=== PATIENT | female | born 1995 | race Caucasian/White ===

== ENCOUNTER 2019-07-04 07:51 | Emergency (ER) | payer MEDICAID ==
[~2019-07-04] VITALS: Ht 170.2 cm; Wt 119.0 kg
[2019-07-04 09:48] LABS: BASOPHILS % 0.3 % (0.0-2.0); HEMATOCRIT. 35.4 % (36.0-48.0); LYMPHOCYTES % 26.6 % (20.0-50.0); MEAN CORPUSCULAR HEMOGLOBIN 29.4 pg (28.0-32.0); MEAN CORPUSCULAR VOLUME 86.9 fL (81.0-99.0); MEAN PLATELET VOLUME 8.6 fl (7.4-10.4); MONOCYTES % 7.1 % (2.0-8.0); PLATELET 289 x1000/uL (130-400); RED BLOOD CELL COUNT 4.08 mill/uL (4.2-5.4)
[2019-07-04 09:56] LABS: CHLORIDE 108 mEq/L (98-107)
[2019-07-04 09:58] LABS: CLARITY URINE CLEAR (CLEAR); COLOR URINE YELLOW (YELLOW); KETONES URINE NEGATIVE (NEGATIVE); LEUKOCYTE ESTERASE URINE 1+ (NEGATIVE); NITRITE URINE NEGATIVE (NEGATIVE); OCCULT BLOOD URINE TRACE (NEGATIVE); PROTEIN URINE NEGATIVE (NEGATIVE); SPECIFIC GRAVITY URINE 1.005 (1.005-1.030); UROBILINOGEN URINE 0.2 E.U./dL (0.2-1.0)
[2019-07-04 10:18] LABS: B-HCG QUANTITATIVE 24765 mIU/mL (<3)
[2019-07-04 16:40] VITALS: BP 115/58
== END 2019-07-04 16:52 | disposition home or self-care (01) ==
LOC: ER 07:51
DX: O03.4 Incomplete spontaneous abortion without complication (principal); O23.41 Unspecified infection of urinary tract in pregnancy, first trimester; Z3A.08 8 weeks gestation of pregnancy
CPT/HCPCS: 36415; 76801; 81003; 84702; 86850; 86900; 99284

== ENCOUNTER 2019-07-24 10:09 | Emergency (ER) | payer MEDICAID ==
[~2019-07-24] VITALS: Ht 172.7 cm; Wt 123.0 kg
[2019-07-24] MEDS ORDERED: ONDANSETRON HCL 4MG/2ML INJ IV ONE (11:00)
[2019-07-24] MEDS ORDERED: MORPHINE SULFATE 4 MG/ML CPJ (NOT FOR IM USE) IV ONE (11:00)
[2019-07-24] MEDS ORDERED: SODIUM CHLORIDE 0.9% 1,000 ML IV ONE (11:00)
[2019-07-24 11:47] LABS: BASOPHILS % 0.5 % (0.0-2.0); EOSINOPHILS % 1.7 % (0.0-5.0); HEMATOCRIT. 36.4 % (36.0-48.0); HEMOGLOBIN. 12.2 g/dL (12.0-16.0); MEAN CORPUSCULAR HEMOGLOBIN 29.3 pg (28.0-32.0); MEAN CORPUSCULAR VOLUME 87.7 fL (81.0-99.0); MEAN PLATELET VOLUME 8.8 fl (7.4-10.4); MONOCYTES % 6.9 % (2.0-8.0); NEUTROPHILS % 68.9 % (40.0-76.0); PLATELET 297 x1000/uL (130-400); RED BLOOD CELL COUNT 4.15 mill/uL (4.2-5.4); RED CELL DISTRIBUTION WIDTH 15.3 % (11.6-14.6)
[2019-07-24 11:53] LABS: CHLORIDE 107 mEq/L (98-107)
[2019-07-24 12:05] LABS: B-HCG QUANTITATIVE 396 mIU/mL (<3)
[2019-07-24] MEDS ORDERED: MISOPROSTOL 200MCG TABLET VG ONE (14:00)
[2019-07-24 17:15] VITALS: BP 121/75
== END 2019-07-24 17:30 | disposition home or self-care (01) ==
LOC: ER 10:38
DX: O03.9 Complete or unspecified spontaneous abortion without complication (principal); Z3A.12 12 weeks gestation of pregnancy
CPT/HCPCS: 36415; 76801; 76817; 80053; 84702; 85025; 86850; 86900; 86901; 96374; 96375; 99284; J2270; J2405; J7030

== ENCOUNTER 2020-05-02 13:10 | Observation (INO) | payer MEDICAID ==
[~2020-05-02] VITALS: Ht 167.6 cm; Wt 95.3 kg
== END 2020-05-02 16:35 | disposition home or self-care (01) ==
LOC: 8EST NSY 13:10 → 8 EST A/PP 14:39
PROVIDERS: ADMIT Specialist; ATTEND Specialist
DX: O26.852 Spotting complicating pregnancy, second trimester (principal); Z3A.25 25 weeks gestation of pregnancy
CPT/HCPCS: 76805; 99281; G0378

== ENCOUNTER 2025-01-31 08:21 | Emergency (ER) | payer MEDICAID ==
[~2025-01-31] VITALS: Ht 160 cm; Wt 104.3 kg
[2025-01-31 08:24] VITALS: BP 125/86; TEMP 37.2; O2SAT 98
[2025-01-31 08:40] VITALS: PULSE 121; RESP 18; O2SAT 99
[2025-01-31] MEDS ORDERED: AMOX1TAB16 MT (09:35)
== END 2025-01-31 09:52 | disposition home or self-care (01) ==
LOC: ER 08:28
DX: H66.91 Otitis media, unspecified, right ear (principal)
CPT/HCPCS: 99283